=== PATIENT | male | born 1985 | race Caucasian/White ===

== ENCOUNTER 2016-12-05 13:17 | Emergency (ER) | payer OTHER ==
[~2016-12-05] VITALS: Ht 193 cm; Wt 103.8 kg
[2016-12-05 13:26] VITALS: Ht 193 cm; Wt 103.8 kg
--- NOTE | 2016-12-05 14:05 | EMERGENCY ROOM VISIT NOTE ---
History Report prepared by Leon: Fawn Goodman Under the Supervision of: Dr. Gerry Sarabia M.D. First contact with patient: 13:40 Chief Complaint: SYNCOPE Stated Complaint: FALL - SEVERE LEFT WRIST PAIN Nursing Triage Summary: triage note: pt reports while running at approx 1230 he passed out. pt reports left wrist pain. pt displays dressing to bilat knees dilshad and intact. pt reports some dizziness. History of Present Illness The patient is a 31 year old male who presents to the Emergency Room with complaints of an episode of syncope occurring [employer]. The patient was running on campus this afternoon. He tripped over the uneven sidewalk and fell, landing on his hands and knees. He has abrasion to his extremities. He is complaining of pain with movement of the left wrist. The patient rates his pain as a 5/10 in severity. He went to [facility] on campus to get a first aid kit. While he was there, he became dizzy. He states that it felt like "the blood rushed to my head " and his hearing started to fade. He lost consciousness for a few seconds. An ambulance was called. The patient has been drinking water and states that he is feeling better now, he just feels tired. He has passed out in the past. His tetanus is up to date. Source of History: patient Onset: [employer] Position: other (global) Symptom Intensity: 5/10 Quality: other (syncope) Timing: other (episode) Modifying Factors (Relieving): other (water) Associated Symptoms: + LOC, + fatigue Note: Pt is complaining of left wrist pain. Review of Systems All systems have been listed, reviewed, and are negative other than those previously mentioned. Please see Additional Medical History Sheet. Past Medical & Surgical Medical Problems: (1) ASTHMA, UNSPECIFIED (2) BRAIN INJURY NEC (3) DIAB KANDIS WO COMPL, TYPE II OR UNSPEC TYPE, NOT UNCNTRLD (4) FAM HX-CARDIOVAS DIS NEC (5) FAM HX-DIABETES MELLITUS (6) HYPERTENSION NOS Family History Diabetes mellitus Hypertension Social History Smoking Status: Never Smoker Smokeless Tobacco Use: No Alcohol Use: none Marital Status: single Housing Status: lives alone Occupation Status: employed, [employer] student Current/Historical Medications No Active Prescriptions or Reported Meds Allergies Coded Allergies: No Known Allergies (Unverified , 12/05/16) Physical Exam Vital Signs Date Time Temp Pulse Resp B/P (MAP) Pulse Ox O2 Delivery O2 Flow Rate FiO2 12/05/16 15:22 36.7 73 18 121/82 97 12/05/16 15:20 73 18 121/82 97 Room Air 12/05/16 14:05 49 123/72 55 130/81 73 136/72 12/05/16 13:26 36.7 64 18 127/86 97 Room Air Physical Exam GENERAL: Patient awake, alert, oriented x 3. Patient follows commands. Patient does not appear toxic. Patient is adequately hydrated and well- nourished. SKIN: No erythema, pallor, cyanosis or rash HEENT: Normal head, pupils equal, reactive to light and accommodation. LUNGS: Clear to auscultation. No wheezes, no rales, no rhonchi. HEART: No murmurs. No gallops. No rubs ABDOMEN: Soft, nontender. EXTREMITIES: Patient has an abrasion on both knees, but FROM. Tenderness to the left wrist, minimally tender in the snuffbox, good ROM. No pedal or pretibial edema. No calf or thigh tenderness. NEUROLOGIC: Cranial nerves II-XII within normal limits. No gross motor sensory function deficits. Medical Decision & Procedures ER Provider Diagnostic Interpretation: Radiology results as stated below per my review and radiologist interpretation: LEFT WRIST MIN 3 VIEWS ROUTINE CLINICAL HISTORY: Left wrist pain status post trauma COMPARISON: January 2012 DISCUSSION: No acute fractures are visualized. There is an old distal radial deformity. There is an old deformity of the fusiform. There are no dislocations. There is a bone island within the base the first metacarpal IMPRESSION: Old healed radial styloid fracture. No acute fractures or dislocations identified. Electronically signed by: Kar Vang M.D. 12/05/2016 2:30 PM Dictated Date/Time: 12/05/2016 2:28 PM ECG Indication: syncope Rate (beats per minute): 53 Rhythm: sinus bradycardia Findings: no acute ischemic change, no ectopy ED Course 1340: Past medical records reviewed. The patient was evaluated in room C9. A complete history and physical examination was performed. 1459: I reassessed the patient at this time. He is feeling better and resting comfortably. I discussed the results and treatment plan with the patient. I answered all pertaining questions that he had. He expressed understanding and verbalized agreement. The patient will be discharged home. Medical Decision Differential diagnoses includes wrist fracture, vasovagal syncope, orthostasis, dehydration, fracture, sprain. The patient is here with what appears to be a vasovagal episode after seeing blood and feeling pain in his knees and wrist. X-ray of his wrist reveals no acute fracture. EKG reveals a sinus bradycardia. The patient is not orthostatic. I do not believe the patient requires blood work. The patient feels fine. He was fitted with a wrist lacer. His knees the abrasions on his knees were cleansed and bandaged. The patient was felt safe to return home. Medication Reconciliation: I attest that I have personally reviewed the patient' s current medication list. Blood pressure Screening: Patient was found to have normal blood pressure on screening and does not require follow up. Impression Primary Impression: Vasovagal syncope Additional Impressions: Left wrist sprain Abrasion of knee, bilateral Scribe Attestation The scribe's documentation has been prepared under my direction and personally reviewed by me in its entirety. I confirm that the note above accurately reflects all work, treatment, procedures, and medical decision making performed by me. Departure Information Dispostion Home / Self-Care Prescriptions No Active Prescriptions or Reported Meds Referrals Chandler Christian M.D. (MEDICAL) (PCP) Forms HOME CARE DOCUMENTATION FORM, IMPORTANT VISIT INFORMATION Patient Instructions My [facility] Additional Instructions Advil or Aleve as needed for pain. Wear the wrist lacer for the next 10 days. It may be removed for bathing or sleep. Follow-up with your family physician or return here if your symptoms are not improving over the next week. Problem Qualifiers Additional Impressions: Left wrist sprain Encounter type: initial encounter Qualified Codes: S63.502A - Unspecified sprain of left wrist, initial encounter
--- NOTE | 2016-12-05 14:31 | DIAGNOSTIC IMAGING REPORT ---
LEFT WRIST MIN 3 VIEWS ROUTINE CLINICAL HISTORY: Left wrist pain status post trauma COMPARISON: January 2012 DISCUSSION: No acute fractures are visualized. There is an old distal radial deformity. There is an old deformity of the fusiform. There are no dislocations. There is a bone island within the base the first metacarpal IMPRESSION: Old healed radial styloid fracture. No acute fractures or dislocations identified. Electronically signed by: Kar Vang M.D. 12/05/2016 2:30 PM Dictated Date/Time: 12/05/2016 2:28 PM
[2016-12-05 15:22] VITALS: BP 121/82; PULSE 73; TEMP 36.7; O2SAT 97
== END 2016-12-05 15:23 | disposition home or self-care (01) ==
LOC: C.EDB 13:18 → C.EDC 15:23
DX: S63.502A Unspecified sprain of left wrist, initial encounter (principal); S80.211A Abrasion, right knee, initial encounter; S80.212A Abrasion, left knee, initial encounter; W10.1XXA Fall (on)(from) sidewalk curb, initial encounter; R55 Syncope and collapse; I10 Essential (primary) hypertension; Y92.89 Other specified places as the place of occurrence of the external cause; J45.909 Unspecified asthma, uncomplicated; Z87.820 Personal history of traumatic brain injury; E11.9 Type 2 diabetes mellitus without complications; Z83.3 Family history of diabetes mellitus; Z82.49 Family history of ischemic heart disease and other diseases of the circulatory system